=== PATIENT | male | born 1950 | race Caucasian/White ===

== ENCOUNTER 2023-01-20 12:26 | Emergency (ER) | payer MEDICARE, OTHER ==
[~2023-01-20] VITALS: Ht 177.8 cm; Wt 78.1 kg
[~2023-01-20 12:26] MED LIST: AMLO10TA PO; AUGM875T28 PO; IBUP-1114 PO; PERCOCET PO; PRED10TA2 PO; SENO8.6T10 PO
[2023-01-20 12:35] VITALS: BP 151/91
[2023-01-20] MEDS ORDERED: HYDR-3713 PO (14:40)
== END 2023-01-20 15:15 | disposition home or self-care (01) ==
LOC: EDBD 12:26 → M ED 12:26
DX: S92.515A Nondisplaced fracture of proximal phalanx of left lesser toe(s), initial encounter for closed fracture (principal); S92.324A Nondisplaced fracture of second metatarsal bone, right foot, initial encounter for closed fracture; S92.334A Nondisplaced fracture of third metatarsal bone, right foot, initial encounter for closed fracture; S92.344A Nondisplaced fracture of fourth metatarsal bone, right foot, initial encounter for closed fracture; V49.40XA Driver injured in collision with unspecified motor vehicles in traffic accident, initial encounter; Y92.410 Unspecified street and highway as the place of occurrence of the external cause

== ENCOUNTER 2023-04-27 06:14 | Day surgery (SDC) | payer MEDICARE, OTHER ==
[~2023-04-27] VITALS: Ht 177.8 cm; Wt 77.1 kg
[~2023-04-27 06:14] MED LIST changes: +CYCLOPENTOLATE 1% OPHTH SOLN 2ML BTL OS SCH; +HYDR-3713 PO; +IBUP200C25 PO; +OFLOXACIN 0.3 % (OCUFLOX) OPTH SOL 5ML OS SCH; +PHENYLEPHRINE 2.5% OPHTH SOL 2ML OS SCH; +PROPARACAINE 0.5% OPHTH SOL 15ML OS ONE; +TROPICAMIDE 1% OPHTH SOLN 15ML OS SCH
[2023-04-27] MEDS ORDERED: LIDOCAINE 1% SDV 5ML VIAL As Ordered ONE (06:42)
[2023-04-27] MEDS ORDERED: CEFUROXIME 1MG/0.1ML INTRACAMERAL INJ As Ordered ONE (06:43)
[2023-04-27] MEDS ORDERED: BSS IRR 500ML/OMIDRIA 4ML IRR BAG (OR ONLY) As Ordered ONE (08:31)
[2023-04-27] MEDS ORDERED: fentaNYL 100 MCG/2 ML INJECTION As Ordered ONE (08:37)
[2023-04-27] MEDS ORDERED: MIDAZOLAM INJ 2MG/2ML VIAL As Ordered ONE (08:37)
[2023-04-27 09:45] VITALS: BP 167/97; TEMP 98.2; O2SAT 98
== END 2023-04-27 09:56 | disposition home or self-care (01) ==
LOC: M SDC 06:14
PROVIDERS: ATTEND Ophthalmology
DX: H25.12 Age-related nuclear cataract, left eye (principal); I10 Essential (primary) hypertension; F17.200 Nicotine dependence, unspecified, uncomplicated; F10.10 Alcohol abuse, uncomplicated; Z79.899 Other long term (current) drug therapy
CPT/HCPCS: 66984; J0697; J1097; J2250; J3010; V2632

== ENCOUNTER 2023-06-01 06:12 | Day surgery (SDC) | payer MEDICARE, OTHER ==
[~2023-06-01] VITALS: Ht 177.8 cm; Wt 76.7 kg
[~2023-06-01 06:12] MED LIST changes: +CYCLOPENTOLATE 1% OPHTH SOLN 2ML BTL OD SCH; -CYCLOPENTOLATE 1% OPHTH SOLN 2ML BTL OS SCH; +OFLOXACIN 0.3 % (OCUFLOX) OPTH SOL 5ML OD SCH; -OFLOXACIN 0.3 % (OCUFLOX) OPTH SOL 5ML OS SCH; +PHENYLEPHRINE 2.5% OPHTH SOL 2ML OD SCH; -PHENYLEPHRINE 2.5% OPHTH SOL 2ML OS SCH; +PROPARACAINE 0.5% OPHTH SOL 15ML OD ONE; -PROPARACAINE 0.5% OPHTH SOL 15ML OS ONE; +TROPICAMIDE 1% OPHTH SOLN 15ML OD SCH; -TROPICAMIDE 1% OPHTH SOLN 15ML OS SCH
[2023-06-01] MEDS ORDERED: LIDOCAINE 1% SDV 5ML VIAL As Ordered ONE (06:34)
[2023-06-01] MEDS ORDERED: CEFUROXIME 1MG/0.1ML INTRACAMERAL INJ As Ordered ONE (06:35)
[2023-06-01] MEDS ORDERED: BSS IRR 500ML/OMIDRIA 4ML IRR BAG (OR ONLY) As Ordered ONE (06:35)
[2023-06-01] MEDS ORDERED: MIDAZOLAM INJ 2MG/2ML VIAL As Ordered ONE (08:24)
[2023-06-01 09:00] VITALS: BP 154/92; TEMP 97.4; O2SAT 98
== END 2023-06-01 09:01 | disposition home or self-care (01) ==
LOC: M SDC 06:12
PROVIDERS: ATTEND Ophthalmology
DX: H25.11 Age-related nuclear cataract, right eye (principal); I10 Essential (primary) hypertension; F17.200 Nicotine dependence, unspecified, uncomplicated
CPT/HCPCS: 66984; J0697; J1097; J2250; V2632

== ENCOUNTER 2023-12-08 09:55 | Day surgery (SDC) | payer MEDICAID, MEDICARE, OTHER ==
[~2023-12-08] VITALS: Ht 177.8 cm; Wt 76.2 kg
[~2023-12-08 09:55] MED LIST changes: -CYCLOPENTOLATE 1% OPHTH SOLN 2ML BTL OD SCH; +ERGO500029 PO; +LIDOCAINE 2% 100MG/5ML SDV (FOR ANES.) As Ordered ONE; -OFLOXACIN 0.3 % (OCUFLOX) OPTH SOL 5ML OD SCH; -PHENYLEPHRINE 2.5% OPHTH SOL 2ML OD SCH; -PROPARACAINE 0.5% OPHTH SOL 15ML OD ONE; -TROPICAMIDE 1% OPHTH SOLN 15ML OD SCH; +propofoL 200 MG/20 ML VIAL As Ordered ONE
[2023-12-08] MEDS: NS 1,000 ML IV ONE (10:09)
[2023-12-08 10:48] VITALS: TEMP 96.5
[2023-12-08 11:04] VITALS: BP 132/77; O2SAT 96
== END 2023-12-08 11:27 | disposition home or self-care (01) ==
LOC: M OPP 09:55
PROVIDERS: ATTEND Surgery
DX: K62.5 Hemorrhage of anus and rectum (principal); D12.3 Benign neoplasm of transverse colon; D12.2 Benign neoplasm of ascending colon; K62.0 Anal polyp; I10 Essential (primary) hypertension; F17.290 Nicotine dependence, other tobacco product, uncomplicated

== ENCOUNTER 2024-10-24 09:19 | Emergency (ER) | payer OTHER ==
[~2024-10-24] VITALS: Ht 177.8 cm; Wt 74.9 kg
[~2024-10-24 09:19] MED LIST changes: -LIDOCAINE 2% 100MG/5ML SDV (FOR ANES.) As Ordered ONE; -propofoL 200 MG/20 ML VIAL As Ordered ONE
[2024-10-24 10:05] LABS: KETONE, URINE MANUAL REFLEX NEGATIVE (NEGATIVE); NITRITE, URINE MANUAL RFX POSITIVE (NEGATIVE); PROTEIN, URINE MANUAL REFLEX 3+ mg/dL (NEGATIVE); SP GRAVITY,URINE MANUAL REFLEX 1.012 (1.002-1.035); UROBILINOGEN, UA MANUAL REFLEX NORMAL (NORMAL)
[2024-10-24 10:07] LABS: HYALINE CAST, URINE RFX NONE SEEN /lpf (0-1); MICROSCOPIC EXAM RFX UNSPUN; RBC, URINE MAN REFLEX 20-30 /hpf (0-3); SQUAMOUS EPITHELIAL URINE RFX SMALL AMOUNT /hpf (SMALL AMT); WBC, URINE MAN RFX 40-50 /hpf (0-3)
[2024-10-24] MEDS ORDERED: HOME MED LIST COMPLETE! XX SCH (11:20)
[2024-10-24 12:01] VITALS: BP 129/78; TEMP 98.6; O2SAT 98
[2024-10-24] MEDS ORDERED: CIPR500T39 PO (12:24)
== END 2024-10-24 12:50 | disposition home or self-care (01) ==
LOC: M ED 09:19
DX: N39.0 Urinary tract infection, site not specified (principal)

== ENCOUNTER → 2025-02-06 | Outpatient (CLI) | payer OTHER, MEDICARE, MEDICAID ==
[~2025-02-06] MED LIST changes: +AMLO-751 PO; -AMLO10TA PO; +CIPR500T39 PO
== END ==
LOC: M PLAIMG 11:26
PROVIDERS: ATTEND Physician Assistant Medical
DX: M54.50 Low back pain, unspecified (principal)